=== PATIENT | male | born 1980 | race African-American/Black ===

== ENCOUNTER 2020-03-29 18:41 | Emergency (ER) | payer MEDICAID ==
[~2020-03-29] VITALS: Ht 177.8 cm; Wt 91.0 kg
[2020-03-29] MEDS ORDERED: SODIUM CHLORIDE 0.9% 1,000 ML IV ONE (19:00)
[2020-03-29] MEDS ORDERED: ACETAMINOPHEN 325MG TABLET PO ONE (19:30)
[2020-03-29 19:57] LABS: EOSINOPHILS % 0.7 % (0.0-5.0); HEMATOCRIT. 48.1 % (42.0-52.0); HEMOGLOBIN. 16.6 g/dL (14.0-18.0); LYMPHOCYTES % 32.4 % (20.0-50.0); MEAN CORPUSCULAR HEMOGLOBIN 30.3 pg (28.0-32.0); MEAN CORPUSCULAR VOLUME 87.9 fL (80.0-94.0); MEAN PLATELET VOLUME 10.1 fl (7.4-10.4); MONOCYTES % 8.2 % (2.0-8.0); NEUTROPHILS % 57.7 % (40.0-76.0); PLATELET 199 x1000/uL (130-400); RED BLOOD CELL COUNT 5.47 mill/uL (4.7-6.1)
[2020-03-29 20:05] LABS: CHLORIDE 101 mEq/L (98-107)
[2020-03-29 20:08] LABS: PROTHROMBIN TIME 10.3 sec (9.6-11.0)
[2020-03-29 20:09] LABS: ETHANOL BLOOD < 10 mg/dL
[2020-03-29 20:27] LABS: CLARITY URINE CLEAR (CLEAR); COLOR URINE YELLOW (YELLOW); KETONES URINE NEGATIVE (NEGATIVE); LEUKOCYTE ESTERASE URINE NEGATIVE (NEGATIVE); NITRITE URINE NEGATIVE (NEGATIVE); OCCULT BLOOD URINE NEGATIVE (NEGATIVE); PH URINE 5.5 (4.5-8.0); PROTEIN URINE TRACE (NEGATIVE); SPECIFIC GRAVITY URINE 1.028 (1.005-1.030)
[2020-03-29] MEDS ORDERED: METF-414 MT (21:22)
[2020-03-29] MEDS ORDERED: METFORMIN HCL 500MG TABLET PO ONE (21:30)
[2020-03-29 21:47] LABS: *AMPHETAMINES SCREEN URINE NEGATIVE (NEGATIVE)
[2020-03-29 21:48] LABS: *BARBITURATES SCREEN URINE NEGATIVE (NEGATIVE); *BENZODIAZEPINES SCREEN URINE NEGATIVE (NEGATIVE); *COCAINE SCREEN URINE NEGATIVE (NEGATIVE); CANNABINOID URINE SCREEN PRESUMTIVE POSITIVE (NEGATIVE); METHADONE URINE SCREEN NEGATIVE (NEGATIVE); OPIATES URINE SCREEN NEGATIVE (NEGATIVE); PHENCYCLIDINE URINE SCREEN NEGATIVE (NEGATIVE)
[2020-03-29 21:56] VITALS: BP 116/67
== END 2020-03-29 21:57 | disposition home or self-care (01) ==
LOC: ER 18:50
DX: R55 Syncope and collapse (principal); R73.9 Hyperglycemia, unspecified; F41.9 Anxiety disorder, unspecified; J45.909 Unspecified asthma, uncomplicated; F12.10 Cannabis abuse, uncomplicated; F17.210 Nicotine dependence, cigarettes, uncomplicated
CPT/HCPCS: 36415; 71045; 80053; 80305; 80320; 81003; 82962; 85025; 85610; 93005; 96360; 99285; J7030; G0480